=== PATIENT | male | born 1970 | race Caucasian/White ===

== ENCOUNTER 2022-02-27 17:43 | Inpatient (IN) ==
[2022-02-27] MEDS ORDERED: 0.9 % SODIUM CHLORIDE 1,000 ML IV ONE ×2 (17:52)
--- NOTE | 2022-02-27 18:01 | Emergency Department Note ---
HPI General Chief complaint: Blood Sugar Problem Stated complaint: Sick Time Seen by Provider: 02/27/22 17:51 Source: patient Mode of arrival: ambulatory Limitations: no limitations History of Present Illness HPI Narrative: Narrative: Patient presents to the ED after being sent from [facility] for elevated blood sugar. Apparently patient not been feeling well for 2 weeks. He states he been feeling thirsty, dry mouth, feverish, body aches and just generally weak. When he checked his blood sugar at [facility] it was too high for their machine so they sent him to the ED. Patient reports that he has had vomiting which subsided a day ago. He states he did have a bout of diarrhea 3 days ago as well. He denies melena, hematochezia, hematemesis, cardiac chest pain, shortness of breath, cough, sputum production, extremity weakness, extremity numbness, dysuria, hematuria, urinary frequency. Patient denies any history of diabetes. He states that he has been told his been prediabetic. He reports a history of hypertension and hyperlipidemia for which he takes simvastatin and lisinopril. He denies any known sick contacts. Patient denies any other alleviating or aggravating factors. Related Data Home Medications Medication Instructions Recorded Confirmed aspirin 325 mg tablet (Lite Coat 325 mg PO DAILY 06/30/18 02/27/22 Aspirin) lisinopril 10 mg tablet (Zestril) 10 mg PO DAILY 06/30/18 02/27/22 simvastatin 20 mg tablet 20 mg PO HS 06/30/18 02/27/22 Previous Rx's Medication Instructions Recorded chlorhexidine gluconate 0.12 % 15 ml MM BID ##473 05/28/19 mouthwash ondansetron HCl 4 mg tablet 4 mg PO Q8H PRN nausea and 05/08/21 (Zofran) vomiting #30 tabs Allergies Allergy/AdvReac Type Severity Reaction Status Date / Time No Known Drug Allergies Allergy Verified 02/27/22 16:37 Review of Systems ROS ROS Narrative: Narrative: All systems ED: reviewed and negative except as stated. FORMERLY [facility], 1928–1983 Narrative Patient History Narrative: Narrative: Medical/Surgical/Family History All Active Problems (Updated 02/27/22 @ 19:08 by Davi Foley DO) Hyperosmolar hyperglycemic state (HHS) (Acute) Acute hyponatremia (Acute) Acute dehydration (Acute) Generalized weakness (Acute) Hyperglycemia (Acute) Nausea and vomiting (Acute) Bronchitis (Acute) Dental caries (Acute) Fracture of tooth (Acute) Community acquired pneumonia (Acute) COVID-19 (Acute) Exam Narrative Narrative: Narrative: General Limitations: no limitations General appearance: Present alert and other (Ill-appearing) Eye Eye: Present PERRL and EOMI ENT ENT: Present normal oropharynx and mucous membranes dry Neck Neck: Present normal inspection; Absent meningismus Chest Chest: Present normal inspection; Absent tenderness Respiratory Respiratory: Present normal lung sounds bilaterally; Absent respiratory distress, wheezes or stridor Cardiovascular Cardiovascular: Present regular rate and normal rhythm Adbominal Abdominal: Present soft and normal bowel sounds; Absent tenderness Extremities Extremities: Present normal inspection and normal capillary refill Neurological Neurological: Present oriented X3 and normal gait Psychiatric Psychiatric: Present normal affect and normal mood Skin Skin: Present warm (WNL); Absent intact Course Course Course Narrative: Patient was evaluated for concerns about possible DKA due to his weakness and elevated blood sugar. When patient arrived here his mouth was completely pasty. Blood sugar was 922. He was bolused 2 L of IV fluid. His pH was within normal limits and his lactic acid was normal as well so patient did not meet DKA criteria. Repeat blood sugar showed that his blood sugar had improved down to less than 600. Patient was given bolus IV insulin and started on insulin drip. Labs also show that patient was severely hyponatremic with a sodium level of 118. Patient did feel a little bit better after the IV fluid bolus and improvement in blood sugar. Case was discussed with hospitalist who was agreed to admit the patient. Plan was discussed with patient and family who expressed verbal understanding and agreement with admission. Reevaluation(s) Reevaluation #1: Patient remains hemodynamically stable. No new complaints at this time. Time: 18:47 Consultations Consultation #1: Case discussed with hospitalist who has graciously excepted patient as an admission to the hospital Time: 19:45 Vital Signs Vital signs: Vital Signs Temperature 98.6 F 02/27/22 17:47 Pulse Rate 96 H 02/27/22 17:47 Respiratory Rate 18 02/27/22 17:47 Blood Pressure 146/101 02/27/22 17:47 Pulse Oximetry (%) 95 02/27/22 17:47 Oxygen Delivery Method 02/27/22 17:47 Temperature 98.6 F 02/27/22 17:47 Pulse Rate 94 H 02/27/22 19:36 Respiratory Rate 20 02/27/22 19:36 Blood Pressure 175/103 02/27/22 19:36 Pulse Oximetry (%) 96 02/27/22 19:36 Oxygen Delivery Method 02/27/22 17:47 MDM MDM Narrative Medical decision making narrative: Narrative: Differential Diagnosis Differential Diagnosis: DKA, hyperosmolar hyperglycemia, sepsis Medical Records Medical records reviewed: Yes I reviewed the patient's medical records. Lab Data Lab results reviewed: Yes I reviewed the patient's lab results. Labs: Lab Results 02/27/22 02/27/22 Range/Units 18:09 19:36 POC Hct 47.0 (41-55) POC VBG pH 7.42 (7.32-7.42) POC VBG pCO2 at Temp 41.9 (41-51) POC VBG pO2 51 H (25-40) POC VBG HCO3 27.4 (24-28) POC VBG Total CO2 29.0 (25-29) POC Venous O2 Sat 87.0 H (40-70) POC VBG Base Excess 3.0 H (-2-2) VBG Lactic Acid 1.9 (0.5-2) POC Sodium 129 L (133-145) POC Potassium 3.7 (3.3-5.1) POC Chloride 95 L (96-108) POC Total CO2 27.0 (22-30) POC BUN 14 (6-20) POC Creatinine 0.6 (0.6-1.2) POC Glucose 585 H* (70-105) POC WB Ioniz Calcium 1.11 L (1.16-1.32) ED POC Tests ED POC Tests: JULIENNE - Influenza A Negative JULIENNE - Influenza B Negative JULIENNE - SARS Antigen Negative EKG Data EKG #1: EKG attestation: Yes I reviewed and interpreted this EKG. EKG shows normal: sinus rhythm Rhythm: NSR Heart block present: None ST segment elevation in: None ST segment depression in: None QTc: normal QRS morphology: Present normal Interpretation: no acute changes and nonspecific ST-T wave changes Core Measures AMI Core Measures Followed: Yes Discharge Plan Patient/Caregiver Discharge Instructions Pt seen by GLASS SCULLION/PA only: No Clinical Impression: Hyperosmolar hyperglycemic state (HHS), Acute hyponatremia, Acute dehydration, Generalized weakness Patient Disposition: Xfer As Inpt ([facility]) Condition: Fair Follow up with: Papito Alcantar ARNP [Primary Care Provider] - Prescriptions: No Action aspirin [Lite Coat Aspirin] 325 MG tablet 325 mg PO DAILY simvastatin 20 MG tablet 20 mg PO HS lisinopril [Zestril] 10 MG tablet 10 mg PO DAILY chlorhexidine gluconate 118 ML mouthwash 15 ml MM BID Qty: 473 0RF ondansetron HCl [Zofran] 4 mg tablet 4 mg PO Q8H PRN (Reason: nausea and vomiting) Qty: 30 0RF
[2022-02-27] MEDS ORDERED: INSULIN REGULAR, HUMAN 1 UNIT/0.01 ML UNIT IV ONE ×2 (19:37→22:00)
[2022-02-27 19:39] LABS: POC Calcium, Ionized 1.11 (1.16-1.32); POC Creatinine 0.6 (0.6-1.2); POC Potassium 3.7 (3.3-5.1)
[2022-02-27] MEDS ORDERED: INSULIN REGULAR, HUMAN 50 UNIT in 0.9 % SODIUM CHLORIDE 99.5 ML IV SCH (19:45)
[2022-02-27] MEDS ORDERED: INSULIN REGULAR, HUMAN 1 UNIT/0.01 ML UNIT ONE ×2 (20:17→21:58)
--- NOTE | 2022-02-27 20:31 | Internal Med History&Physical ---
HPI History of Present Illness Patient information: Note initiated : 02/27/22 at 8:24 pm Service Date, if different from initiated Date: [] Patient: Rei Arreola 52 y/o M admitted on for Sick. Chief Complaint: [Nausea, vomiting, malaise] Chief complaint: Intractable nausea and vomiting History of present illness: Mr. Arreola is a 52 year old obese male with a past medical history significant for smoking, CAD, hyperlipidemia and hypertension who presents to the hospital with 1 week history of polydipsia, polyuria that developed into intractable nausea. The patient states that he thought his symptoms were related to the extreme heat. 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 The was present at the bedside to corroborate his story. She states that he was drinking cases of water. He was also urinating every 45 minutes. He would go to the bathroom throughout the night. The patient states that he has had poor oral intake over the last several days. He decided to come to the ER due to severe nausea and vomiting. On arrival, he was hemodynamically stable and afebrile. His labs were significant for a sodium of 118 and a blood glucose of 922. Likely, the patient had no evidence of diabetic ketoacidosis. He was started on an insulin infusion in the ER, given 2 L of fluid boluses and the hospital service was asked admit the patient for further management and evaluation. Review of Systems All systems: reviewed and no additional remarkable complaints except as stated Constitutional Constitutional: Present as per HPI EENT Eyes: Present as per HPI; Absent blurry vision Cardiovascular Cardiovascular: Present as per HPI; Absent chest pain, dyspnea, dyspnea on exertion, leg edema or palpatations Respiratory Respiratory: Present as per HPI; Absent cough, dyspnea, dyspnea on exertion, wheezing or stridor Gastrointestinal Gastrointestinal: Present as per HPI, nausea and vomiting; Absent abdominal pain, diarrhea, dysphagia, hematemesis or melena Musculoskeletal Musculoskeletal: Present as per HPI; Absent joint swelling, limited range of motion, muscle cramps, muscle weakness or myalgias Integumentary Integumentary: Present as per HPI; Absent erythema, new lesions, rash or wounds Neurological Neurological: Present as per HPI; Absent abnormal gait, behavioral changes, focal weakness, headache(s), loss of vision, numbness, sensory deficit or syncope Endocrine Endocrine: Absent change in body appearance, fatigue or heat intolerance Hematologic/Lymphatic Hematologic/Lymphatic: Present as per HPI PFSH PFSH All Active Problems (Updated 02/27/22 @ 20:28 by Jl Argueta MD) CAD (coronary artery disease) (Acute) Hyperosmolar hyperglycemic state (HHS) (Acute) Acute hyponatremia (Acute) Acute dehydration (Acute) Generalized weakness (Acute) Hyperglycemia (Acute) Nausea and vomiting (Acute) Bronchitis (Acute) Dental caries (Acute) Fracture of tooth (Acute) Community acquired pneumonia (Acute) COVID-19 (Acute) MEDS/ALLERGIES Home Medications and Allergies Home Medications Medication Instructions Recorded Confirmed Type aspirin 325 mg tablet (Lite Coat 325 mg PO DAILY 06/30/18 02/27/22 History Aspirin) lisinopril 10 mg tablet (Zestril) 10 mg PO DAILY 06/30/18 02/27/22 History simvastatin 20 mg tablet 20 mg PO HS 06/30/18 02/27/22 History chlorhexidine gluconate 0.12 % 15 ml MM BID ##473 05/28/19 02/27/22 Rx mouthwash ondansetron HCl 4 mg tablet 4 mg PO Q8H PRN nausea and 05/08/21 02/27/22 Rx (Zofran) vomiting #30 tabs Allergies Allergy/AdvReac Type Severity Reaction Status Date / Time No Known Drug Allergies Allergy Verified 02/27/22 16:37 EXAM Constitutional Vitals: Temp Pulse Resp BP Pulse Ox O2 Del Method 98.6 F 94 H 20 175/103 96 02/27/22 17:47 02/27/22 19:36 02/27/22 19:36 02/27/22 19:36 02/27/22 19:36 02/27/22 17:47 General appearance: average body habitus Head Head exam: Present atraumatic, normal inspection and normocephalic Eye Eye exam: Present EOMI, normal appearance and PERRL; Absent conjunctival injection ENT ENT exam: Present normal exam; Absent mucous membranes dry Neck Neck exam: Present full ROM; Absent lymphadenopathy Respiratory Respiratory exam: Present normal respiratory exam and CTAB; Absent decreased breath sounds, respiratory distress or wheezes Cardiovascular Cardiovascular exam: Present normal rate and rhythm and RRR; Absent JVD GI/Abdominal GI/Abdominal exam: Present normal bowel sounds and soft; Absent diminished bowel sounds, distended, guarding, mass, rebound or tenderness Neurological Exam Neurological exam: Present alert, CN II-XII intact and oriented X3 Psychiatric Psychiatric exam: Present normal affect and normal mood Skin Skin exam: Present intact and warm; Absent erythema, pallor, petechiae or rash DATA Data Completed and Pending Labs: Labs from last 24 hours 02/27/22 02/27/22 02/27/22 19:36 18:14 18:09 POC Hct 47.0 POC VBG pH 7.42 POC VBG pCO2 at Temp 41.9 POC VBG pO2 51 H POC VBG HCO3 27.4 POC VBG Total CO2 29.0 POC Venous O2 Sat 87.0 H POC VBG Base Excess 3.0 H VBG Lactic Acid 1.9 POC Sodium 129 L POC Potassium 3.7 POC Chloride 95 L POC Total CO2 27.0 POC BUN 14 POC Creatinine 0.6 POC Glucose 585 H* Hemoglobin A1c Pending Estim Average Glucose Pending POC WB Ioniz Calcium 1.11 L Beta-Hydroxybutyrate 02/27/22 17:03 POC Hct POC VBG pH POC VBG pCO2 at Temp POC VBG pO2 POC VBG HCO3 POC VBG Total CO2 POC Venous O2 Sat POC VBG Base Excess VBG Lactic Acid POC Sodium POC Potassium POC Chloride POC Total CO2 POC BUN POC Creatinine POC Glucose Hemoglobin A1c Estim Average Glucose POC WB Ioniz Calcium Beta-Hydroxybutyrate Pending A/P Assessment and plan (1) Hyperosmolar hyperglycemic state (HHS): Status: Acute (2) Acute hyponatremia: Status: Acute (3) Acute dehydration: Status: Acute (4) Generalized weakness: Status: Acute (5) Nausea and vomiting: Status: Acute (6) Hyperglycemia: Status: Acute (7) CAD (coronary artery disease): Status: Acute Narrative A/P Narrative: The patient has developed severe hyperglycemia leading to osmotic diuresis and volume depletion. Likely ketogenesis was suppressed by even low levels of insulin. His presentation was insidious. Likely there were no neurological deficits such as seizures. His blood glucose was greater than 600 and his serum osmolality was likely greater than 320. The patient was not acidotic as his pH was greater then 7.3. The patient will be aggressively IV fluid resuscitated with a goal of 8 to 10 L which is likely his total water deficit. We will reduce the insulin infusion and add IV dextrose once his blood glucose is less than 300. He will be started on an insulin regimen tomorrow. He will be kept n.p.o. in the interim. Hemoglobin A1c is pending. Time Spent With Patient Time: Total time spent is greater than 50% in coordination of care (as documented) at patient's floor/unit and/or counseling patient: Total time spent with greater than 50% in coordination of care (as documented) at patient's floor/unit and/or counseling patient:: Greater than 70 minutes Critical Care Time: Yes Total Critical Care Time: 30
[2022-02-27] MEDS ORDERED: ACETAMINOPHEN 325 MG TABLET PO PRN (21:03)
[2022-02-27] MEDS: LACTATED RINGERS 1,000 ML IV SCH (21:20)
[2022-02-27] MEDS: 0.9 % SODIUM CHLORIDE 10 ML SYRINGE IV SCH (21:21)
[2022-02-27] MEDS ORDERED: DEXTROSE 31 GM ORAL.SUSP PO PRN (21:40)
[2022-02-27] MEDS ORDERED: DEXTROSE 50% 50 ML VIAL IV PRN (21:40)
[2022-02-27 23:26] LABS: Beta Hydroxybutyrate 2.64 mmol/L (<0.27)
[2022-02-27] MEDS: INSULIN LISPRO 1 UNIT/0.01 ML UNIT SQ SCH (23:58)
[2022-02-28 00:14] LABS: Estimated Average Glucose(eAG) 390 mg/dL; Hemoglobin A1C 15.2 % Hgb (4.0-6.0)
[2022-02-28] MEDS: LACTATED RINGERS 1,000 ML IV SCH ×4 (01:26→19:30)
[2022-02-28 02:00] LABS: Blood Urea Nitrogen 10 mg/dL (6-20); Calcium 8.3 mg/dL (8.6-10.4); Carbon Dioxide 23 mmol/L (22-30); Chloride 94 mmol/L (96-108); Glomerular Filtration Rate 110; Glucose 340 mg/dL (70-105)
[2022-02-28 02:15] LABS: Estimated Average Glucose(eAG) 369 mg/dL; Hemoglobin A1C 14.5 % Hgb (4.0-6.0)
[2022-02-28] MEDS: INSULIN LISPRO 1 UNIT/0.01 ML UNIT SQ SCH ×8 (02:35→21:15)
[2022-02-28] MEDS: 0.9 % SODIUM CHLORIDE 10 ML SYRINGE IV SCH ×3 (05:23→21:15)
[2022-02-28 07:09] LABS: Blood Urea Nitrogen 8 mg/dL (6-20); Calcium 8.4 mg/dL (8.6-10.4); Carbon Dioxide 23 mmol/L (22-30); Chloride 98 mmol/L (96-108); Glomerular Filtration Rate 117; Glucose 268 mg/dL (70-105)
[2022-02-28] MEDS: ENOXAPARIN 30 MG/0.3 ML SYRINGE SQ SCH (08:07)
[2022-02-28] MEDS ORDERED: POTASSIUM CHLORIDE 20 MEQ TABLET PO ONE (08:49)
[2022-02-28] MEDS: INSULIN GLARGINE, HUMAN 1 UNIT/0.01 ML SQ SCH (09:38)
--- NOTE | 2022-02-28 10:22 | Internal Med Progress Note ---
SUBJECTIVE Subjective Patient information: Note initiated : 02/28/22 at 10:20 am Service Date, if different from initiated Date: [] Patient: Rei Arreola 52 y/o M admitted on 02/27/22 for High Blood Sugar, weakness. Chief Complaint: [HHS] Principal diagnosis: Severe hyperglycemia, pseudohyponatremia Interval history: The patient is feeling and looking much better today. We discussed diabetes management and lifestyle modifications. He is very thankful for the care that he is receiving. Discussed the case with the RN. Constitutional Vitals: Vital Signs Temp Pulse Resp BP Pulse Ox O2 Del Method O2 Flow Rate 97.5 F 82 12 152/91 96 0 02/28/22 09:24 02/28/22 10:01 02/28/22 10:01 02/28/22 10:01 02/28/22 10:01 02/28/22 07:37 02/28/22 10:01 Period Temp Pulse Resp BP Sys/Price Pulse Ox O2 Del Method O2 Flow Rate Last 24 Hr 97.4 F-98.6 F 70-96 7-25 139-175/89-111 89-97 Nasal Cannula- Room Air 0-2 Intake and Output 02/27/22 02/28/22 02/28/22 21:59 05:59 13:59 Intake Total 2600 2438 1540 Output Total 500 650 650 Balance 2100 1788 890 Weight 132.903 kg Intake & Output: Intake & Output 02/27/22 02/28/22 02/28/22 21:59 05:59 13:59 Intake Total 2600 2438 1540 Output Total 500 650 650 Balance 2100 1788 890 Weight 132.903 kg Intake: IV 1999 1987 999 Sodium Chloride 0.9% 1,000 ml @ 2000 Wide Open IV BOLUS ONE Rx#: [id number] Lactated Ringers 1,000 ml @ 250 1987 1000 mls/hr IV .Q4H GABBY Rx#: [id number] Oral 600 450 540 Output: Void Amount 500 650 650 Other: Meal Breakfast Percent of Meal Consumed 100% Feeding Ability Independent Urine Appearance Clear Clear Clear Urine Color Bright Yellow Bright Yellow Dark Yellow Urine Odor Normal Normal Normal Head Head exam: Present atraumatic and normal inspection Eye Eye exam: Present normal appearance ENT ENT exam: Present mucous membranes moist, normal exam and normal external ear exam Neck Neck exam: Present normal inspection Respiratory Respiratory exam: Present normal respiratory exam Cardiovascular Cardiovascular exam: Present normal rate and rhythm GI/Abdominal GI/Abdominal exam: Present normal bowel sounds Back Exam Back exam: Present normal inspection Neurological Exam Neurological exam: Present alert and oriented X3 Skin Skin exam: Present intact and warm OBJ DATA Labs CBC & Chem 7: 02/28/22 06:00 Labs: Abnormal Lab Results 02/28/22 02/28/22 02/28/22 06:00 00:16 00:16 POC VBG pO2 POC Venous O2 Sat POC VBG Base Excess POC Sodium Sodium 132 L 127 L POC Chloride Chloride 94 L Creatinine 0.6 L Glucose 268 H 340 H POC Glucose Hemoglobin A1c 14.5 H Calcium 8.4 L 8.3 L POC WB Ioniz Calcium Beta-Hydroxybutyrate 02/27/22 02/27/22 02/27/22 19:36 18:14 18:09 POC VBG pO2 51 H POC Venous O2 Sat 87.0 H POC VBG Base Excess 3.0 H POC Sodium 129 L Sodium POC Chloride 95 L Chloride Creatinine Glucose POC Glucose 585 H* Hemoglobin A1c 15.2 H Calcium POC WB Ioniz Calcium 1.11 L Beta-Hydroxybutyrate 02/27/22 17:03 POC VBG pO2 POC Venous O2 Sat POC VBG Base Excess POC Sodium Sodium POC Chloride Chloride Creatinine Glucose POC Glucose Hemoglobin A1c Calcium POC WB Ioniz Calcium Beta-Hydroxybutyrate 2.64 H Meds: Medications Acetaminophen (Acetaminophen 325 Mg Tablet) 650 mg PO Q4-6HP PRN; Protocol PRN Reason: Per Pain Protocol/Fever > 101 Last Admin: 02/28/22 10:06 Dose: 650 mg Dextrose (Dextrose 50% 50 Ml Vial) 0 ml IV UD PRN PRN Reason: Per Sliding Scale Diagnostic Test (Pha) (Accu-Chek 1 Each Strip) 1 each FS ACHS [facility] Enoxaparin Sodium (Enoxaparin 30 Mg/0.3 Ml Syringe) 30 mg SQ DAILY [facility] Last Admin: 02/28/22 08:07 Dose: 30 mg Glucose (Dextrose 31 Gm Oral.Susp) 15 gm PO PRN PRN PRN Reason: Hypoglycemia Lactated Ringer's (Lactated Ringers) 1,000 mls @ 100 mls/hr IV .Q10H [facility] Last Admin: 02/28/22 09:58 Dose: 100 mls/hr Insulin Glargine (Insulin Glargine, Human 1 Unit/0.01 Ml) 30 unit SQ DAILY [facility] Last Admin: 02/28/22 09:38 Dose: 30 units Insulin Human Lispro (Insulin Lispro 1 Unit/0.01 Ml Unit) 10 unit SQ ACHS [facility] Lisinopril (Lisinopril 10 Mg Tablet) 10 mg PO DAILY [facility] Simvastatin (Simvastatin 20 Mg Tablet) 20 mg PO HS G[facility]BY Sodium Chloride (0.9 % Sodium Chloride 10 Ml Syringe) 10 ml IV Q8 [facility] Last Admin: 02/28/22 05:23 Dose: Not Given A/P Assessment and plan (1) Hyperosmolar hyperglycemic state (HHS): Status: Acute (2) Acute hyponatremia: Status: Acute (3) Acute dehydration: Status: Acute (4) Generalized weakness: Status: Acute (5) Nausea and vomiting: Status: Acute (6) Hyperglycemia: Status: Acute (7) CAD (coronary artery disease): Status: Acute Narrative A/P Narrative: The patient has developed severe hyperglycemia leading to osmotic diuresis and volume depletion. Likely ketogenesis was suppressed by even low levels of insulin. His presentation was insidious. Likely there were no neurological deficits such as seizures. His blood glucose was greater than 600 and his serum osmolality was likely greater than 320. The patient was not acidotic as his pH was greater then 7.3. The patient will be aggressively IV fluid resuscitated with a goal of 8 to 10 L which is likely his total water deficit. We will reduce the insulin infusion and add IV dextrose once his blood glucose is less than 300. He will be started on an insulin regimen tomorrow. He will be kept n.p.o. in the interim. Hem oglobin A1c is pending. 02/28: The patient's insulin infusion was discontinued last night. He will be transition to weight-based Lantus starting at 30 units daily and will also be started on lispro 10 units 3 times daily with meals. A diet has been resumed this morning. His IV fluids have been decreased to 100 cc an hour. We will continue ongoing diabetic education. He will be transferred to [facility]. Time Spent With Patient Time: Total time spent is greater than 50% in coordination of care (as documented) at patient's floor/unit and/or counseling patient: Total time spent with greater than 50% in coordination of care (as documented) at patient's floor/unit and/or counseling patient:: 35 - 50 minutes QUALITY VTE Deep Vein Thrombosis/Pulmonary Embolism Present on Admission: No
[2022-02-28 13:26] LABS: Blood Urea Nitrogen 7 mg/dL (6-20); Calcium 8.7 mg/dL (8.6-10.4); Carbon Dioxide 21 mmol/L (22-30); Chloride 96 mmol/L (96-108); Glomerular Filtration Rate 104; Glucose 343 mg/dL (70-105)
[2022-02-28] MEDS ORDERED: SIMVASTATIN 20 MG TABLET PO SCH (21:00)
[2022-03-01] MEDS: LACTATED RINGERS 1,000 ML IV SCH ×2 (05:15→15:42)
[2022-03-01] MEDS: 0.9 % SODIUM CHLORIDE 10 ML SYRINGE IV SCH ×2 (05:24→15:42)
[2022-03-01 06:37] LABS: Blood Urea Nitrogen 7 mg/dL (6-20); Calcium 8.4 mg/dL (8.6-10.4); Carbon Dioxide 20 mmol/L (22-30); Chloride 97 mmol/L (96-108); Glomerular Filtration Rate 104; Glucose 315 mg/dL (70-105)
[2022-03-01] MEDS: ENOXAPARIN 30 MG/0.3 ML SYRINGE SQ SCH (08:09)
[2022-03-01] MEDS: INSULIN GLARGINE, HUMAN 1 UNIT/0.01 ML SQ SCH (08:19)
[2022-03-01] MEDS: INSULIN LISPRO 1 UNIT/0.01 ML UNIT SQ SCH ×2 (08:19→12:26)
[2022-03-01] MEDS ORDERED: LISINOPRIL 10 MG TABLET PO SCH (09:00)
--- NOTE | 2022-03-01 12:51 | Discharge Summary ---
Discharge Provider Provider IMPORTANT FOLLOW-UP INFORMATION FOR PCP: 1. F/u sleep study 2. F/u with cards re: diuretic tx 3. Ongoing adjustment of his anti-glycemic regimen Patient information: Note initiated : 03/01/22 at 12:50 pm Service Date, if different from initiated Date: [] Patient: Rei Arreola 52 y/o M admitted on 02/27/22 for High Blood Sugar, weakness. Chief Complaint: [] Date of admission: 02/27/22 20:58 Discharge date: 03/01/22 Primary care physician: ALPA Cabrera Consults: 02/27/22 Consult to Physician [CONS] Stat Comment: Consulting Provider: Jl Argueta Reason For Exam: Physician to Consult Attending physician on discharge: Jl Argueta COURSE Hospital Course Hospital course: Chief complaint: Intractable nausea and vomiting History of present illness: Mr. Arreola is a 52 year old obese male with a past medical history significant for smoking, CAD, hyperlipidemia and hypertension who presents to the hospital with 1 week history of polydipsia, polyuria that developed into intractable nausea. The patient states that he thought his symptoms were related to the extreme heat. 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 The was present at the bedside to corroborate his story. She states that he was drinking cases of water. He was also urinating every 45 minutes. He would go to the bathroom throughout the night. The patient states that he has had poor oral intake over the last several days. He decided to come to the ER due to severe nausea and vomiting. On arrival, he was hemodynamically stable and afebrile. His labs were significant for a sodium of 118 and a blood glucose of 922. Likely, the patient had no evidence of diabetic ketoacidosis. He was started on an insulin infusion in the ER, given 2 L of fluid boluses and the hospital service was asked admit the patient for further management and evaluation. A/P Narrative: The patient has developed severe hyperglycemia leading to osmotic diuresis and volume depletion. Likely ketogenesis was suppressed by even low levels of insulin. His presentation was insidious. Likely there were no neurological deficits such as seizures. His blood glucose was greater than 600 and his serum osmolality was likely greater than 320. The patient was not acidotic as his pH was greater then 7.3. The patient will be aggressively IV fluid resuscitated with a goal of 8 to 10 L which is likely his total water deficit. We will reduce the insulin infusion and add IV dextrose once his blood glucose is less than 300. He will be started on an insulin regimen tomorrow. He will be kept n.p.o. in the interim. Hemoglobin A1c is pending. 02/28: The patient's insulin infusion was discontinued last night. He will be transition to weight-based Lantus starting at 30 units daily and will also be started on lispro 10 units 3 times daily with meals. A diet has been resumed this morning. His IV fluids have been decreased to 100 cc an hour. We will continue ongoing diabetic education. He will be transferred to [facility]. 03/01: The patient's Lantus has been increased to 40 units nightly and his lispro has been increased to 12 units 3 times daily with meals. His blood sugars this morning were around 290 on lower dose insulin. He will need continuing titration. He will need to remain on insulin until his hemoglobin A1c is below 11. He will need continuing diabetic education. Of note the patient's TTE was obtained and was reassuring. He was found to have a normal LV size and systolic function with an EF of 55% and normal diastolic function. He may benefit from a repeat follow-up with cardiology and to see if his diuretic therapy may be discontinued. Of note, the patient will also follow-up with Dr. Be as an outpatient for sleep study as there is concerns that he may have JORDEN. Discharge diagnosis: HHS, hyperglycemia, new DM2 Time Spent with Patient Time attestation: Total time spent providing and/or coordinating discharge services: Time spent: Greater than 30 minutes EXAM Constitutional Vitals: Temp Pulse Resp BP Pulse Ox O2 Del Method O2 Flow Rate 97.7 F 83 20 155/98 95 0 03/01/22 12:18 03/01/22 12:18 03/01/22 07:48 03/01/22 12:18 03/01/22 12:18 03/01/22 07:48 03/01/22 03:38 General appearance: average body habitus Head Head exam: Present atraumatic, normal inspection and normocephalic Eye Eye exam: Present EOMI, normal appearance and PERRL; Absent conjunctival injection ENT ENT exam: Present normal exam; Absent mucous membranes dry Neck Neck exam: Present full ROM; Absent lymphadenopathy Respiratory Respiratory exam: Present normal respiratory exam and CTAB; Absent decreased breath sounds, respiratory distress or wheezes Cardiovascular Cardiovascular exam: Present normal rate and rhythm and RRR; Absent JVD GI/Abdominal GI/Abdominal exam: Present normal bowel sounds and soft; Absent diminished bowel sounds, distended, guarding, mass, rebound or tenderness Neurological Exam Neurological exam: Present alert, CN II-XII intact and oriented X3 Psychiatric Psychiatric exam: Present normal affect and normal mood Skin Skin exam: Present intact and warm; Absent erythema, pallor, petechiae or rash Discharge Data Data Completed and Pending Labs on day of discharge: Labs from last 24 hours 03/01/22 02/28/22 05:08 12:04 Sodium 130 L 128 L Potassium 4.5 4.5 Chloride 97 96 Carbon Dioxide 20 L 21 L Anion Gap 13.0 11.0 BUN 7 7 Creatinine 0.8 0.8 GFR Calculation 104 104 Glucose 315 H 343 H Calcium 8.4 L 8.7 Discharge Plan Patient/Caregiver Discharge Instructions Activity: increase activity as tolerated Instructions: Hyponatremia (GEN), Type 2 Diabetes in Adults: New Diagnosis (GEN), Basic Carbohydrate Counting (GEN), Meal Planning with Diabetes Exchanges (GEN), Diabetic Hyperglycemia (GEN) Prescriptions: New insulin lispro 100 unit/mL cartridge 12 unit subcut TID Qty: 15 0RF insulin glargine [Lantus Solostar U-100 Insulin] 100 unit/mL (3 mL) insulin pen 40 unit subcut QPM Qty: 15 0RF Continued aspirin [Lite Coat Aspirin] 325 MG tablet 325 mg PO DAILY simvastatin 20 MG tablet 20 mg PO HS lisinopril [Zestril] 10 MG tablet 10 mg PO DAILY furosemide 20 mg tablet 1 tab PO QDAY potassium chloride [Klor-Con M20] 20 mEq tablet,ER particles/crystals 1 tab PO QDAY albuterol sulfate [Proventil HFA] 90 mcg/actuation HFA aerosol inhaler 1 puff INHALATION Q4H PRN (Reason: SOB) Label Comments: [NO ORIGINAL SIG] Spiriva with HandiHaler 18 mcg capsule, w/inhalation device 1 cap INHALATION QDAY Discontinued ondansetron HCl [Zofran] 4 mg tablet 4 mg PO Q8H PRN (Reason: nausea and vomiting) Qty: 30 0RF Other Ambulatory Orders: Lancets (Routine) Location: None Selected Ordered By: Jl Argueta Follow Up Plan Follow up with: Armando Be MD [Physician] - (A referral has been sent, they will contact you to schedule an appointment.) Papito Alcantar ARNP [Primary Care Provider] - 03/04/22 8:20 am (Please arrive 15 minutes early) Patient Disposition: Home, Self-Care Prognosis: Fair Rehab Potential: Good I certify that the patient requires SNF services: No Overall status at discharge: patient is progressing back to baseline Discharge Orders: Discharge Order (Routine); Ordered 03/01/22 Ordered By: Jl Argueta QUALITY VTE Deep Vein Thrombosis/Pulmonary Embolism Present on Admission: No
== END 2022-03-01 14:50 | disposition home or self-care (01) | DRG 638 ==
LOC: ED 17:43 → ICU 20:58
PROVIDERS: ADMIT Student in an Organized Health Care Education/Training Program; ATTEND Student in an Organized Health Care Education/Training Program